=== PATIENT | male | born 1990 | race Caucasian/White ===

== ENCOUNTER 2024-11-24 17:09 | Observation (INO) | payer BC ==
[2024-11-24] MEDS ORDERED: ASPIRIN 81 MG CHEWABLE TABLET ONE (17:46)
[2024-11-24 17:52] LABS: Absolute Lymphocytes (CBC) 1.0 K/uL (0.7-4.9); Hematocrit 49.5 % (39.6-49.0); Hemoglobin 17.0 g/dL (13.6-17.9); MCH 30.4 pg (27.0-35.0); MCHC 34.3 g/dL (32.0-36.0); MCV 88.7 fL (80-100); MPV 9.1 fL (7.6-11.3); Nucleated RBC Absolute Count 0.0 (0-0); Nucleated Red Blood Cells % 0.1 % (0-0); RBC Red Blood Cell Count 5.59 M/uL (4.33-5.43); White Blood Count 6.50 thou/uL (4.3-10.9)
[2024-11-24 17:53] LABS: PT Prothrombin Time 12.9 SECONDS (10-13.0); Protime INR 1.15
--- NOTE | 2024-11-24 17:56 | RAD REPORT ---
EXAMINATION: ONE VIEW CHEST XR CLINICAL INDICATION: CHEST PAIN TECHNIQUE: Frontal chest projection is submitted. Examination is limited by patient positioning and t echnique. COMPARISON: No prior exam. FINDINGS: The lungs are well inflated and clear. The heart is upper limit of normal in size. No displaced fract ures identified. IMPRESSION: No acute intrathoracic abnormalities.
[2024-11-24 18:08] LABS: ALT/SGPT 64 U/L (16-61); AST/SGOT < 10 U/L (15-37); Albumin 4.4 g/dL (3.4-5.0); Albumin/Globulin Ratio 1.3 (1.1-1.8); Alkaline Phosphatase 46 U/L (45-117); Anion Gap 8.5 mEq/L (5.0-15.0); BUN Blood Urea Nitrogen 16 mg/dL (7-18); Bilirubin Indirect, Calculated 0.6 mg/dL (0.2-0.8); Globulin 3.5 g/dL (2.3-3.5); Glucose Level 129 mg/dL (74-106); Magnesium 2.2 mg/dL (1.6-2.4); NT PRO-BNP 75 pg/mL (<125); Potassium 3.5 mEq/L (3.5-5.1); Troponin High Sensitivity 14.2 pg/mL (<58.9)
--- NOTE | 2024-11-24 18:10 | EDPHYS ---
Physician Documentation [facility] Name: Yousif Grant Age: 33 yrs Sex: Male : 1990 Arrival Date: 11/24/2024 Time: 17:09 Bed 7 Private MD: ED Physician Jian Lord HPI: 11/24 19:53 This 33 yrs old Male presents to ER via Ambulatory with complaints of SENT BY RASLAN. sb4 19:53 Patient reports left-sided chest pain for a little over a week now. He states that he sb4 was seen here initially, had a negative workup, and was referred to cardiology. He states that he saw cardiology today, had a stress test done, and was told to come here for further eval. He states that his chest pain was initially intermittent but has become more persistent over the past few days. Historical: - Allergies: 17:24 No Known Allergies; me1 - PMHx: 17:24 None; me1 - PSHx: 17:24 None; me1 - Immunization history:: Adult Immunizations up to date. - Infectious Disease History:: Denies. - Social history:: Smoking status: Patient denies any tobacco usage or history of. ROS: 19:53 Constitutional: Negative for fever, chills, and weight loss, sb4 19:53 Cardiovascular: Positive for chest pain, 19:53 All other systems are negative, Exam: 19:53 Constitutional: This is a well developed, well nourished patient who is awake, alert, sb4 and in no acute distress. Head/Face: Normocephalic, atraumatic. Eyes: Extra-ocular motions intact. Periorbital areas with no swelling, redness, or edema. ENT: Mucous membranes moist. Cardiovascular: Regular rate and rhythm with a normal S1 and S2. Respiratory: No increased work of breathing, no retractions or nasal flaring. Skin: Warm, dry with normal turgor. Normal color with no rashes, no lesions, and no evidence of cellulitis. Vital Signs: 17:21 BP 118 / 97; Pulse 72; Resp 17; Temp 98.2; Pulse Ox 100% ; Weight 86.18 kg; Height 6 me1 ft. 2 in. ; Pain 5/10; 18:00 BP 114 / 78; Pulse 75; Resp 18; Temp 97.8(O); Pulse Ox 99% on R/A; nh2 19:26 BP 131 / 77; Pulse 76; Resp 18; Pulse Ox 98% on R/A; zm 20:08 BP 126 / 66; Pulse 68; Resp 19; Temp 98.5; Pulse Ox 100% on R/A; zm 17:21 Body Mass Index 24.39 (86.18 kg, 187.96 cm) me1 17:21 Pain Scale: Adult me1 [place] Coma Score: 19:26 Eye Response: spontaneous(4). Motor Response: obeys commands(6). Verbal Response: zm oriented(5). Total: 15. 20:08 Eye Response: spontaneous(4). Motor Response: obeys commands(6). Verbal Response: zm oriented(5). Total: 15. MDM: 17:14 Medical Screening Exam initiated sb4 19:53 Differential diagnosis: URI, bronchitis, pneumonia ACS, muscle strain, pericarditis. sb4 Data reviewed: vital signs, nurses notes, lab test result(s), EKG, radiologic studies, and as a result, I will admit patient. Consideration of Admission/Observation Patient was admitted/placed on observation. Management of patient was discussed with the following: Noc Technician: Dr. Coker sent patient over after stating that he had a mildly abnormal stress test. Would like him to be admitted for a cardiac catheterization in the morning. Counseling: I had a detailed discussion with the patient and/or guardian regarding the historical points, exam findings, and any diagnostic results supporting the discharge/admit diagnosis, lab results, radiology results, the need for further work-up and treatment in the hospital. 19:56 Scoring Tools HEART Score: History: ECG: Age: Risk Factors: No Risk Factors Known (0), sb4 Troponin: Total Score = 0. 11/24 17:14 Order name: Basic Metabolic Panel; Complete Time: 18:09 sb4 11/24 17:14 Order name: CBC with Diff; Complete Time: 17:58 sb4 11/24 17:14 Order name: LFT's; Complete Time: 18: sb4 11/24 17:14 Order name: Magnesium; Complete Time: 18:09 sb4 11/24 17:14 Order name: NT PRO-BNP; Complete Time: 18: sb4 11/24 17:14 Order name: PT-INR; Complete Time: 17:55 sb4 11/24 17:14 Order name: Troponin HS; Complete Time: 18:09 sb4 11/24 18:15 Order name: DD; Complete Time: 18:46 sb4 11/24 18:16 Order name: Add On-Lab sb4 11/24 19:03 Order name: Basic Metabolic Panel [facility] 11/24 19:03 Order name: Basic Metabolic Panel [facility] 11/24 19:03 Order name: CBC with Automated Diff [facility] 11/24 19:03 Order name: CBC with Automated Diff [facility] 11/24 19:03 Order name: Troponin High Sensitivity [facility] 11/24 19:03 Order name: Troponin High Sensitivity [facility] 11/24 19:03 Order name: Troponin High Sensitivity [facility] 11/24 19:03 Order name: Troponin High Sensitivity [facility] 11/24 19:03 Order name: Troponin High Sensitivity [facility] 11/24 17:14 Order name: XRAY Chest (1 view); Complete Time: 17:58 sb4 11/24 19:03 Order name: EKG Electrocardiogram [facility] 11/24 19:03 Order name: EKG Electrocardiogram [facility] 11/24 19:03 Order name: EKG Electrocardiogram [facility] 11/24 19:03 Order name: EKG Electrocardiogram [facility] 11/24 17:14 Order name: Cardiac monitoring; Complete Time: 17:56 sb4 11/24 17:14 Order name: EKG - Nurse/Tech; Complete Time: 17:56 sb4 11/24 17:14 Order name: IV Saline Lock; Complete Time: 17:56 sb4 11/24 17:14 Order name: Labs collected and sent; Complete Time: 17:56 sb4 11/24 17:14 Order name: O2 Per Protocol; Complete Time: 17:56 sb4 11/24 17:14 Order name: O2 Sat Monitoring; Complete Time: 17:56 sb4 EC:04 Rate is 69 beats/min. Rhythm is regular, Normal Sinus Rhythm. MO interval is normal at sb4 138 msec. QRS interval is normal at 92 msec. QT interval is normal at 404 msec. No Q waves. T waves are Normal. No ST changes noted. Clinical impression: No evidence of ischemia. Interpreted by me. Reviewed by me. Administered Medications: 17:56 Drug: Aspirin PO Chewable Tablet 324 mg PO once; 81 mg tablets x 4 Route: PO; nh2 19:36 Follow up: Response: No adverse reaction zm Disposition Summary: 11/24/24 18:09 Hospitalization Ordered Notes: Hospitalization Status: Observation sb4 Provider: Eamon Brito4 Location: Telemetry/MedSurg (observation) sb4 Condition: Fair sb4 Problem: new sb4 Symptoms: are unchanged sb4 Bed/Room Type: Standard sb4 Room Assignment: 207(11/24/24 19:04) 6 Diagnosis - Chest pain, unspecified sb4 Forms: - Medication Reconciliation Form sb4 - SBAR form sb4 - Leadership Thank You Letter sb4 Addendum: 11/26/2024 07:02 Co-signature as Attending Physician, Jian Lord MD I reviewed the patient's care r n provided by the Advanced Practice Provider and agree with the diagnosis and treatment plan. Signatures: Dispatcher [employer] EDJian Nolasco MD MD rn Brown, Sophia, PA-C PA-C sb4 Karen Byrd bc6 Mary Bearden RN RN [facility] Jez Macias Jr, RN RN nh2 Dione Concepcion RN Corrections: (The following items were deleted from the chart) 11/24 17:15 17:15 BASIC METABOLIC PANEL+C.LAB.BRZ ordered. EDMS EDMS 17:15 17:15 CBC+H.LAB.BRZ ordered. EDMS EDMS 17:15 17:15 HEPATIC FUNCTION+C.LAB.BRZ ordered. EDMS EDMS 17:15 17:15 MAGNESIUM+C.LAB.BRZ ordered. EDMS EDMS 17:15 17:15 PROBNP+C.LAB.BRZ ordered. EDMS EDMS 17:15 17:15 PROTIME (+INR)+COAG.LAB.BRZ ordered. EDMS EDMS 17:15 17:15 Troponin High Sensitivity+C.LAB.BRZ ordered. EDMS EDMS 17:15 17:15 Chest Single View+RAD.RAD.BRZ ordered. EDMS EDMS 19:04 18:09 sb4 bc6
--- NOTE | 2024-11-24 18:10 | ER ---
Nurse's Notes [facility] Name: Yousif Grant Age: 33 yrs Sex: Male : 1990 Arrival Date: 11/24/2024 Time: 17:09 Bed 7 Private MD: Diagnosis: Chest pain, unspecified Presentation: 11/24 17:21 Chief complaint: Patient states: patient had a stress test today by Dr Coker and was me1 sent to ER to r/o blood clots and for a heart cath tomorrow. Patient has had chest tightness since 11/15 with SOB that has been intermittent but has been constant for the past 2 days. Reports pain is 5/10 and "tightness". Coronavirus screen: Vaccine status: Patient reports receiving the 2nd dose of the covid vaccine. Ebola Screen: No symptoms or risks identified at this time. Initial Sepsis Screen: Does the patient meet any 2 criteria? No. Patient's initial sepsis screen is negative. Does the patient have a suspected source of infection? No. Patient's initial sepsis screen is negative. Risk Assessment: Do you want to hurt yourself or someone else? Patient reports no desire to harm self or others. Onset of symptoms was November 15, 2024. 17:21 Method Of Arrival: [place] [facility] 17:21 Acuity: VU 3 me1 Historical: - Allergies: 17:24 No Known Allergies; me1 - PMHx: 17:24 None; me1 - PSHx: 17:24 None; me1 - Immunization history:: Adult Immunizations up to date. - Infectious Disease History:: Denies. - Social history:: Smoking status: Patient denies any tobacco usage or history of. Screenin:40 [facility] ED Fall Risk Assessment (Adult) History of falling in the last 3 months, nh2 including since admission No falls in past 3 months (0 pts) Confusion or Disorientation No (0 pts) Intoxicated or Sedated No (0 pts) Impaired Gait No (0 pts) Mobility Assist Device Used No (0 pt) Altered Elimination No (0 pt) Score/Fall Risk Level 0 - 2 = Low Risk Oriented to surroundings, Maintained a safe environment, Educated pt \\T\\ family on fall prevention, incl call for assistance when getting out of bed, Assessed \\T\\ reinforced patient's understanding of fall precautions. Abuse screen: Denies threats or abuse. Denies injuries from another. Nutritional screening: No deficits noted. Tuberculosis screening: No symptoms or risk factors identified. Assessment: 17:40 General: Appears in no apparent distress. Behavior is calm, cooperative, appropriate nh2 for age, Denies fever, feeling ill. Pain: Complains of pain in chest Pain radiates to abdomen Pain currently is 2 out of 10 on a pain scale. at worst was 5 out of 10 on a pain scale. Quality of pain is described as pressure, Pain began 2-3 days ago. Is intermittent. Neuro: Level of Consciousness is awake, alert, obeys commands, Oriented to person, place, time, situation, Reports dizziness. Cardiovascular: Reports chest pain, palpitations, Patient's skin is warm and dry. Rhythm is sinus rhythm with multifocal PVCs. Respiratory: Airway is patent Trachea midline Respiratory effort is even, unlabored, Respiratory pattern is regular, symmetrical. GI: Abdomen is round non-distended, Patient currently denies nausea, vomiting. : No signs and/or symptoms were reported regarding the genitourinary system. Denies burning with urination. EENT: No signs and/or symptoms were reported regarding the EENT system. Derm: Skin is intact, Skin is pink, warm \\T\\ dry. Musculoskeletal: Circulation, motion, and sensation intact. Range of motion: intact in all extremities. Vital Signs: 17:21 BP 118 / 97; Pulse 72; Resp 17; Temp 98.2; Pulse Ox 100% ; Weight 86.18 kg; Height 6 me1 ft. 2 in. ; Pain 5/10; 18:00 BP 114 / 78; Pulse 75; Resp 18; Temp 97.8(O); Pulse Ox 99% on R/A; nh2 19:26 BP 131 / 77; Pulse 76; Resp 18; Pulse Ox 98% on R/A; zm 20:08 BP 126 / 66; Pulse 68; Resp 19; Temp 98.5; Pulse Ox 100% on R/A; zm 17:21 Body Mass Index 24.39 (86.18 kg, 187.96 cm) me1 17:21 Pain Scale: Adult me1 [place] Coma Score: 19:26 Eye Response: spontaneous(4). Motor Response: obeys commands(6). Verbal Response: zm oriented(5). Total: 15. 20:08 Eye Response: spontaneous(4). Motor Response: obeys commands(6). Verbal Response: zm oriented(5). Total: 15. ED Course: 17:13 Patient arrived in ED. cj3 17:13 Lupe Valdez PA-C [facility]. sb4 17:13 Jian Lord MD is Attending Physician. sb4 17:24 Triage completed. me1 17:24 Arm band placed on Patient placed in an exam room. me1 17:40 Patient has correct armband on for positive identification. Bed in low position. Call nh2 light in reach. Side rails up X 1. Provided Education on: using call light for assistance. 17:43 XRAY Chest (1 view) In Process Unspecified. EDMS 17:45 Jez Macias Jr, RN is Primary Nurse. nh2 18:09 Eamon Brito, MYRTLE is Hospitalizing Provider. sb4 19:00 Report received from MYRTLE Durand. zm 20:08 No provider procedures requiring assistance completed. Patient admitted, IV remains in zm place. Administered Medications: 17:56 Drug: Aspirin PO Chewable Tablet 324 mg PO once; 81 mg tablets x 4 Route: PO; nh2 19:36 Follow up: Response: No adverse reaction zm Medication: 17:40 VIS not applicable for this client. nh2 Outcome: 18:09 Decision to Hospitalize by Provider. sb4 20:08 Admitted to Med/surg accompanied by tech, via wheelchair, room 207, zm 20:08 Condition: stable 20:08 Instructed on follow up and referral plans. the need for admit, Demonstrated understanding of instructions, follow-up care, 20:11 Patient left the ED. Signatures: Dispatcher [employer] EDMS Dione Concepcion RN MYRTLE Lupe Valdez PA-C PA-C sb4 Mary Bearden RN RN ri1 Jez Macias Jr, RN RN nh2 Akilah Chu cj3 Corrections: (The following items were deleted from the chart) 18:05 18:00 BP 114 / 78; Pulse 75bpm; Pulse Ox 99% RA; Temp 18F; nh2 nh2 19:26 19:26 Report received from MYRTLE Durand
[2024-11-24] MEDS ORDERED: MORPHINE 4 MG/ML SYR IV PRN (18:56)
[2024-11-24] MEDS ORDERED: NITROGLYCERIN 0.4 MG/TAB SL PRN (18:56)
--- NOTE | 2024-11-24 19:06 | P.HP ---
Certification for Inpatient Patient admitted to: Observation With expected LOS: <2 Midnights Patient will require the following post-hospital care: None Practitioner: I am a practitioner with admitting privileges, knowledge of patient current condition, hospital course, and medical plan of care. Services: Services provided to patient in accordance with Admission requirements found in Title 42 Section 412.3 of the Code of Federal Regulations Patient History Date of Service: 11/24/24 Reason for admission: Chest pain/chest tightness, abnormal stress test History of Present Illness: Patient is a pleasant 33-year-old male with past medical history of lightheadedness, palpitations, chest tightness, chest pain, atrial septal defect with remote surgical repair in his childhood. Patient presents to the ER today after having stress test done by camera tuning engineer Dr. Coker, and recommended for patient to go to ER for scheduled cardiac catheterization in a.m. due to abnormality of the stress test result according to report received from ER provider [employer]. Patient currently endorses mild chest tightness with associated shortness of breath occasionally, patient states his current symptoms started 2 days ago around 3 AM when he woke up, acknowledges that camera tuning engineer is aware of his current symptoms. Patient states he does not currently have any chest pain but has a chest tightness. On admission assessment, patient was fully awake, alert and oriented x 3, denies of any chest pain at this time, complains of intermittent mild chest tightness, with no associated shortness of breath at this time. Patient troponin negative, EKG negative at this time. Patient telemetry with no PVCs noted at this time. Patient was recently admitted on 11/15/2024 with admitting diagnosis of lightheadedness and palpitations. During previous admission, patient was having occasional PVCs,consultation by camera tuning engineer was done, and echo also done on prior admission, patient was started on metoprolol 25 mg p.o. daily. Allergies pollen extracts Allergy (Verified 11/15/24 17:00) Itching Home Medications: Fluticasone Propionate [Flonase Allergy Relief] 9.9 ml NS DAILY 11/15/24 Metoprolol Succinate [Toprol Xl*] 25 mg PO DAILY #30 tab 11/17/24 Metoprolol Succinate [Toprol Xl*] 25 mg PO [id number] #30 tab 11/17/24 - Past Medical/Surgical History -: Atrial septal defect -: Atrial Septal repair -: left ankle surgery - Family History Family History: Reviewed- Non-Contributory - Social History Smoking Status: Never smoker Alcohol use: Yes CD- Drugs: No Caffeine use: No Place of Residence: Home Review of Systems 10-point ROS is otherwise unremarkable Cardiovascular: Chest Pain, Other (Chest tightness) Physical Examination - Physical Exam General: Alert, In no apparent distress, Oriented x3, Cooperative HEENT: Atraumatic, Normocephalic, PERRLA Neck: Supple, 2+ carotid pulse no bruit, No LAD, Without JVD or thyroid abnormality Respiratory: Clear to auscultation bilaterally, Normal air movement Cardiovascular: No edema, Normal pulses, Regular rate/rhythm, Normal S1 S2, No gallops Capillary refill: <2 Seconds Gastrointestinal: Normal bowel sounds, Soft and benign, Non-distended, W/out hepatomegaly, No ascites Musculoskeletal: No clubbing, No swelling, No contractures, No erythema, No tenderness, No warmth Integumentary: No rashes, No breakdown, No significant lesion, No tenderness/swelling, No erythema, No warmth, No cyanosis Neurological: Normal gait, Normal speech, Normal strength at 5/5 x4 extr, Normal tone, Sensation intact, Cranial nerves 3-12 intact, Normal reflexes 2+, Normal affect Lymphatics: No axilla or inguinal lymphadenopathy - Studies Laboratory Data (last 24 hrs) 11/24/24 11/24/24 11/24/24 17:30 17:30 17:30 WBC 6.50 Hgb 17.0 Hct 49.5 H Plt Count 232 PT 12.9 INR 1.15 Sodium 140 Potassium 3.5 BUN 16 Creatinine 1.15 Glucose 129 H Magnesium 2.2 Total Bilirubin 0.8 AST < 10 L ALT 64 H Alkaline Phosphatase 46 Male Exam - Male Exam Inguinal exam: No hernias Assessment and Plan - Plan Patient is a pleasant 33-year-old male, sent to the ER by camera tuning engineer Dr. Coker due to abnormal stress test that was done today, patient scheduled for cardiac catheterization in AM. (1)Chest pain/chest tightness. -N.p.o. after midnight for cardiac catheterization in AM. -Nitro 0.4 mg sublingual as needed every 5 minutes x 3. -Morphine 4 mg IV as needed every 4 hours. -Troponin every 8 hours x 3. -EKG every 8 hours x 3. -D5 LR at 100 mL/ hr. NPO after midnight. -Consult cardiology is Dr. Coker. -Echocardiogram will not be done on this admission, patient had echo done on previous admission on 11/15/2024. (2)Chronic history of palpitations and arrhythmia. -Continue home medication metoprolol 25 mg p.o. daily. (3)Explained the entire treatment plan to the patient, solicited questions answered and voiced understanding. Discharge Plan: Home Plan to discharge in: 48 Hours - Advance Directives Does patient have a Living Will: No Does patient have a Durable POA for Healthcare: No - Code Status/Comfort Care Code Status Assessed: Yes Code Status: Full Code Critical Care: No Time Spent Managing Pts Care (In Minutes): 55
[2024-11-24 21:27] VITALS: BMI 23.8
[2024-11-24] MEDS: D5LR 1,000 ML IV SCH (21:36)
[2024-11-25 06:42] LABS: Absolute Lymphocytes (CBC) 1.1 K/uL (0.7-4.9); Hematocrit 43.3 % (39.6-49.0); Hemoglobin 14.9 g/dL (13.6-17.9); MCH 30.5 pg (27.0-35.0); MCHC 34.6 g/dL (32.0-36.0); MCV 88.4 fL (80-100); MPV 8.7 fL (7.6-11.3); Nucleated RBC Absolute Count 0.0 (0-0); Nucleated Red Blood Cells % 0.1 % (0-0); RBC Red Blood Cell Count 4.89 M/uL (4.33-5.43); White Blood Count 4.50 thou/uL (4.3-10.9)
[2024-11-25 06:56] LABS: Anion Gap 6.0 mEq/L (5.0-15.0); BUN Blood Urea Nitrogen 12.0 mg/dL (7-18); Glucose Level 119.0 mg/dL (74-106); Potassium 4.0 mEq/L (3.5-5.1)
[2024-11-25] MEDS: METOPROLOL XL 25 MG TAB PO SCH (07:14)
[2024-11-25] MEDS: ASPIRIN EC 81 MG TAB PO SCH (07:33)
[2024-11-25] MEDS ORDERED: HEPA 1000U/500MLS 3,000 UNIT/1,500 ML BAG IV ONE (07:43)
[2024-11-25] MEDS ORDERED: HEPARIN 10,000 UNIT/10 ML VIAL IV ONE (07:43)
[2024-11-25] MEDS ORDERED: HEPARIN 5000 UNIT/ML 1 ML VIAL ONE (07:44)
[2024-11-25] MEDS ORDERED: LIDOCAINE 1% 20 ML MDV ONE (07:44)
[2024-11-25] MEDS ORDERED: ATROPINE SULF 1 MG/10 ML SYR IV ONE (07:45)
[2024-11-25] MEDS ORDERED: VERAPAMIL HCL 10 MG/4 ML VIAL IV ONE (07:45)
[2024-11-25] MEDS ORDERED: TICAGRELOR 90 MG TABLET PO ONE (07:45)
[2024-11-25] MEDS ORDERED: CLOPIDOGREL 75 MG TABLET ONE (07:45)
[2024-11-25] MEDS ORDERED: NA CHLORIDE 0.9% 500 ML ONE (07:55)
[2024-11-25 08:42] VITALS: O2SAT 100
[2024-11-25] MEDS: ENOXAPARIN 40 MG/0.4 ML SQ SCH (09:00)
--- NOTE | 2024-11-25 10:54 | P.DS ---
Admission Date: 11/24/24 Discharge Date: 11/25/24 Disposition: ROUTINE DISCHARGE Discharge Condition: GOOD Reason for Admission: Chest pain/chest tightness, abnormal stress test Hospital Course: Patient has a known history of ASD and PVCs in the past. He was admitted after an abnormal outpatient stress test. He underwent left heart cath today which revealed no obstructive disease. Patient has been cleared by cardiology for discharge. He has a history of PVC. He is going to be discharged on metoprolol. Vital Signs/Physical Exam: Temp Pulse Resp BP Pulse Ox 97.9 F 80 12 113/72 98 11/25/24 09:40 11/25/24 09:40 11/25/24 09:40 11/25/24 09:40 11/25/24 05:12 General: Alert, In no apparent distress, Cooperative HEENT: Atraumatic, Normocephalic Respiratory: Clear to auscultation bilaterally, Normal air movement Cardiovascular: No edema, Normal pulses, Regular rate/rhythm, Normal S1 S2 Neurological: Normal speech Laboratory Data at Discharge: WBC 4.50 thou/uL (4.3-10.9) 11/25/24 06:14 Hgb 14.9 g/dL (13.6-17.9) D 11/25/24 06:14 Hct 43.3 % (39.6-49.0) 11/25/24 06:14 Plt Count 206 thou/uL (152-406) 11/25/24 06:14 PT 12.9 SECONDS (10-13.0) 11/24/24 17:30 INR 1.15 11/24/24 17:30 Sodium 140 mEq/L (136-145) 11/25/24 06:14 Potassium 4.0 mEq/L (3.5-5.1) D 11/25/24 06:14 BUN 12 mg/dL (7-18) 11/25/24 06:14 Creatinine 1.06 mg/dL (0.70-1.30) 11/25/24 06:14 Glucose 119 mg/dL (74-106) H 11/25/24 06:14 Magnesium 2.2 mg/dL (1.6-2.4) 11/24/24 17:30 Total Bilirubin 0.8 mg/dL (0.2-1.0) 11/24/24 17:30 AST < 10 U/L (15-37) L 11/24/24 17:30 ALT 64 U/L (16-61) H 11/24/24 17:30 Alkaline Phosphatase 46 U/L (45-117) 11/24/24 17:30 Home Medications: Fluticasone Propionate [Flonase Allergy Relief] 9.9 ml NS DAILY 11/15/24 Metoprolol Succinate [Toprol Xl*] 25 mg PO DAILY #30 tab 11/17/24 Metoprolol Succinate [Toprol Xl*] 25 mg PO [id number] #30 tab 11/17/24 Metoprolol Succinate [Toprol Xl*] 25 mg PO [id number] tab 11/25/24 Followup: NONE,NONE [Primary Care Provider] -
--- NOTE | 2024-11-25 11:47 | CON ---
Date of Consultation: 11/25/2024 Reason For Consultation: Unstable angina. History Of Present Illness: This is a 33-year-old male with history of atrial septal defect, status post percutaneous closure many years back. He was evaluated in my office in outpatient for chest elizabeth n that he has been having for the past few days on and off, pressure-like, left-sided with radiation to left upper extremity and throat. I did a cardiac PET stress test on him yesterday, was a very mil d inferior ischemia, but very normal CFR. The patient at that time was having severe chest pain and will not get better with the medical treatments. So, he was directed to be admitted for coronary ang iogram. I saw him this morning. He is still having chest pain on and off. D-dimer was negative and cardiac enzymes are negative. Past Medical History: 1. Atrial septal defect. 2. Hypertension. Medications: Refer to reconciliation sheet for detailed list. Allergies: REVIEWED. Family History: No premature coronary artery disease or cancer. Social History: Does not smoke or drink. Does not use any drugs. Review of Systems: All systems were reviewed and they were negative except as mentioned in the HPI. Physical Examination: Vital Signs: Reviewed. Head and Neck: Pupils are equal, reactive to light. Intact eye movements. No JVD. No cervical lym phadenopathy. Neck is supple. Thyroid is not enlarged. Lungs: Clear to auscultation bilaterally. No rhonchi, wheezing, or crackles. No accessory muscle u se. Heart: Regular rate and rhythm. No extra sounds. Abdomen: Soft, nontender. Bowel sounds positive. No organomegaly. No masses or hernia. No rigidi ty or rebound. Extremities: No edema, clubbing, or cyanosis. Intact pulses. Skin: No rash. No nodules. Neurologic: Alert, awake, oriented x3. No acute focal deficits appreciated. Investigations: Labs were reviewed. Assessment And Recommendations: 1. Chest pain, very typical, very mild abnormality on the cardiac PET stress test. Start on aspirin. Keep NPO past midnight. Plan for coronary angiogram in the morning. 2. Atrial septal defect, status post closure. We will obtain an echo as an outpatient. /MARIA ML Voice ID: [id number] Report ID: [id number]
[2024-11-25 13:10] VITALS: BP 116/58; TEMP 97.7
--- NOTE | 2024-11-25 18:03 | OP ---
Date of Procedure: 11/25/2024 Surgeon: ERUM MALDONADO Procedures Performed: 1. Coronary angiogram. 2. Left heart catheterization. Indication: Unstable angina, mild abnormal stress test. Access: Right radial artery 6-Maltese closed with TR band. Complications: None. Bleeding: Less than 50 mL. Sedation: None. Description Of Procedure: After risks, benefits, and alternatives were explained, the patient agreed to procedure and signed informed consent. The patient was brought into cardiac catheterization [facility] ([facility] prepped and draped in usual sterile fashion. Then, I accessed right radial artery using micr opuncture kit and ultrasound guidance, placed 6-Maltese slender sheath and took 5-Maltese [place] 4.0 cat heter over a J-wire into the aortic root, across the aortic valve, measured the LVEDP. Pullback did not record any gradient. Then I engaged the left main, took standard views, and then in the RCA, too k standard views and then I removed the catheter and the sheath, placed TR band with good hemostasis. Findings: 1. Left main; large and normal. 2. LAD; large and normal, normal diagonal branches. 3. Left circumflex; large and normal, normal OM branches. 4. RCA; dominant and normal. 5. LVEDP is borderline at 10 mmHg. Conclusion: Normal coronary arteries with borderline elevated LVEDP. Recommendation: Medical management. From Cardiology standpoint, patient can be released to follow u p in the office in 1-2 weeks. SR/MODL Voice ID: [id number] Report ID: [id number]
== END 2024-11-25 12:05 | disposition home or self-care (01) ==
LOC: ER 17:09 → INTOOBSV 18:55 → ERHOLD 18:55 → 2ND 19:33
PROVIDERS: ADMIT Internal Medicine; ATTEND Internal Medicine
PROC: 4A023N7 Measurement of Cardiac Sampling and Pressure, Left Heart, Percutaneous Approach (ICD-10-PCS; principal; 2024-11-25)
PROC: B2111ZZ Fluoroscopy of Multiple Coronary Arteries using Low Osmolar Contrast (ICD-10-PCS; 2024-11-25)
DX: R94.39 Abnormal result of other cardiovascular function study (principal); R07.89 Other chest pain; Q21.10 Atrial septal defect, unspecified; R00.2 Palpitations; I49.9 Cardiac arrhythmia, unspecified; I10 Essential (primary) hypertension; Z98.890 Other specified postprocedural states; Z91.09 Other allergy status, other than to drugs and biological substances
CPT/HCPCS: 93005 ×2; 85025 ×2; 80048 ×2; 36415; 83735; 85610; 85379; 80076; 84484 ×4; 83880; 71045; 93458; 76937; 99285; C1893; Q9966; J1644 ×2; J2003; G0378 ×4; J7121; J7040; J0461